=== PATIENT | female | born 1990 | race Caucasian/White ===

== ENCOUNTER 2016-05-20 16:58 | Inpatient (IN) | payer MEDICAID, OTHER ==
[~2016-05-20] VITALS: Ht 165.1 cm; Wt 98.4 kg
[2016-05-20 17:47] LABS: Hematocrit 47.1 % (36.0-46.0); Hemoglobin 16.3 g/dL (12.2-16.2); Mean Corpuscular Hemoglobin 30.5 pg (28.0-32.0); Mean Corpuscular Hgb Conc. 34.6 g/dL (32.0-36.0); Mean Corpuscular Volume 88.1 fL (80.0-100.0); Mean Platelet Volume 9.9 fL (7.4-10.4); Platelet Count (auto) 351 10^3/uL (140-450); Red Cell Distribution Width 12.9 % (11.6-16.0); SUSPECT VIEW TRANSMISSION; White Blood Cell 23.2 10^3/uL (4.4-10.8)
[2016-05-20 17:54] LABS: Metamyelocytes % 0; Myelocytes % 0; Promyelocytes % 0; Reactive Lymphocytes 0
[2016-05-20 18:38] LABS: Albumin 2.9 g/dL (3.4-5.0); BUN/Creatinine Ratio 19.7; Calcium 8.7 mg/dL (8.5-10.1); Potassium 4.6 mmol/L (3.5-5.1)
[2016-05-20 18:48] LABS: Bilirubin, Total 0.6 mg/dL (0.2-1.0); Total Protein 8.2 g/dL (6.4-8.2)
[2016-05-20] MEDS ORDERED: SODIUM CHLORIDE 0.9% 1,000 ML IV ONE (18:48)
[2016-05-20] MEDS ORDERED: CLINDAMYCIN 600MG IV 50 ML IV ONE (19:00)
[2016-05-20] MEDS: SODIUM CHLORIDE 0.9% 1,000 ML IV SCH (19:45)
[2016-05-20] MEDS ORDERED: ONDANSETRON HCL 4 MG/2 ML VIAL IV PRN (19:45)
[2016-05-20] MEDS ORDERED: ACETAMINOPHEN 325 MG TAB PO PRN (19:45)
[2016-05-20] MEDS ORDERED: VANCOMYCIN PER PHARMACY 0 MG IV SCH (19:45)
[2016-05-20] MEDS ORDERED: DOCUSATE SOD 100 MG CAP PO PRN (19:45)
[2016-05-20 20:41] LABS: Platelet Estimate Adequate
[2016-05-20 20:42] LABS: Platelet Clumps FEW
[2016-05-20] MEDS ORDERED: VANCOMYCIN 750 MG in D5W 5% 250 ML IV SCH (21:00)
[2016-05-20 22:19] VITALS: BP 113/58
[2016-05-20] MEDS: VANCOMYCIN 750 MG in D5W 5% 250 ML IV SCH (22:41)
[2016-05-20] MEDS: HYDROmorphone HCL 2 MG/ML VL IV PRN (22:47)
[2016-05-21] MEDS: HYDROmorphone HCL 2 MG/ML VL IV PRN ×4 (02:44→18:21)
[2016-05-21 04:33] VITALS: BP 111/58
[2016-05-21 05:32] VITALS: BP 111/58
[2016-05-21] MEDS: VANCOMYCIN 750 MG in D5W 5% 250 ML IV SCH ×3 (06:02→23:31)
[2016-05-21] MEDS: LORazepam 2MG/ML-1ML VIAL IV PRN ×2 (06:22→21:06)
[2016-05-21 09:14] VITALS: BP 111/68
[2016-05-21 10:42] LABS: Hemoglobin 14.3 g/dL (12.2-16.2); Mean Corpuscular Hemoglobin 30.1 pg (28.0-32.0); Mean Corpuscular Hgb Conc. 33.3 g/dL (32.0-36.0); Mean Corpuscular Volume 90.5 fL (80.0-100.0); Mean Platelet Volume 9.4 fL (7.4-10.4); Platelet Count (auto) 398 10^3/uL (140-450); Red Cell Distribution Width 12.8 % (11.6-16.0); SUSPECT VIEW TRANSMISSION; White Blood Cell 23.7 10^3/uL (4.4-10.8)
[2016-05-21 10:46] LABS: Metamyelocytes % 0; Myelocytes % 0; Promyelocytes % 0; Reactive Lymphocytes 0
[2016-05-21 11:02] LABS: BUN/Creatinine Ratio 10.8; Calcium 8.3 mg/dL (8.5-10.1); Magnesium 2.1 mg/dL (1.6-2.6); Potassium 3.1 mmol/L (3.5-5.1)
[2016-05-21] MEDS: SODIUM CHLORIDE 0.9% 1,000 ML IV SCH (12:25)
[2016-05-21 13:00] VITALS: BP 108/63
[2016-05-21 15:57] LABS: Platelet Estimate Adequate; RBC Morphology Normal
[2016-05-21 16:53] VITALS: BP 104/68
[2016-05-21 17:12] LABS: Phosphorus 2.2 mg/dL (2.5-4.90)
[2016-05-21 20:00] VITALS: BP 105/59
[2016-05-22] VITALS (7 sets, daily range): BP systolic 95–115; BP diastolic 52–74
[2016-05-22] MEDS: HYDROmorphone HCL 2 MG/ML VL IV PRN ×6 (02:38→22:22)
[2016-05-22] MEDS: VANCOMYCIN 750 MG in D5W 5% 250 ML IV SCH ×3 (06:12→22:22)
[2016-05-22] MEDS: SODIUM CHLORIDE 0.9% 1,000 ML IV SCH ×2 (06:13→22:23)
[2016-05-22] MEDS: LORazepam 2MG/ML-1ML VIAL IV PRN (13:00)
[2016-05-22 14:25] LABS: BUN/Creatinine Ratio 9.3; Calcium 8.6 mg/dL (8.5-10.1); Magnesium 2.1 mg/dL (1.6-2.6); Phosphorus 2.9 mg/dL (2.5-4.90); Potassium 4.3 mmol/L (3.5-5.1)
[2016-05-22 15:56] LABS: Basophils # (auto) 0.1 uL; Basophils % (auto) 0.8 % (0.0-2.0); Eosinophils # (auto) 0.1 uL; Eosinophils % (auto) 0.7 % (0.0-7.0); Hematocrit 45.9 % (36.0-46.0); Hemoglobin 15.8 g/dL (12.2-16.2); Lymphocytes # (auto) 1.7 uL; Lymphocytes % (auto) 10.9 % (10.0-50.0); Mean Corpuscular Hemoglobin 30.4 pg (28.0-32.0); Mean Corpuscular Hgb Conc. 34.3 g/dL (32.0-36.0); Mean Corpuscular Volume 88.6 fL (80.0-100.0); Mean Platelet Volume 9.8 fL (7.4-10.4); Monocytes # (auto) 1.1 uL; Monocytes % (auto) 7.1 % (0.0-12.0); Neutrophils # (auto) 12.5 uL; Neutrophils % (auto) 80.5 % (37.0-80.0); Platelet Count (auto) 320 10^3/uL (140-450); Red Cell Distribution Width 12.5 % (11.6-16.0); White Blood Cell 15.6 10^3/uL (4.4-10.8)
[2016-05-22] MEDS: CLINDAMYCIN 600MG IV 50 ML IV SCH ×2 (16:07→23:10)
[2016-05-23] VITALS (7 sets, daily range): BP systolic 100–112; BP diastolic 52–69
[2016-05-23] MEDS: HYDROmorphone HCL 2 MG/ML VL IV PRN ×5 (02:48→21:28)
[2016-05-23] MEDS: VANCOMYCIN 750 MG in D5W 5% 250 ML IV SCH ×3 (05:53→21:31)
[2016-05-23] MEDS: CLINDAMYCIN 600MG IV 50 ML IV SCH ×3 (06:48→23:51)
[2016-05-23] MEDS: LORazepam 2MG/ML-1ML VIAL IV PRN ×3 (07:01→23:48)
[2016-05-23] MEDS: SODIUM CHLORIDE 0.9% 1,000 ML IV SCH (13:53)
[2016-05-23 14:06] LABS: Basophils # (auto) 0 uL; Basophils % (auto) 0.4 % (0.0-2.0); Eosinophils # (auto) 0.1 uL; Eosinophils % (auto) 0.5 % (0.0-7.0); Hematocrit 45.8 % (36.0-46.0); Hemoglobin 15.1 g/dL (12.2-16.2); Lymphocytes # (auto) 1.7 uL; Lymphocytes % (auto) 15.7 % (10.0-50.0); Mean Corpuscular Hemoglobin 29.9 pg (28.0-32.0); Mean Corpuscular Hgb Conc. 32.9 g/dL (32.0-36.0); Mean Platelet Volume 8.8 fL (7.4-10.4); Monocytes # (auto) 0.6 uL; Monocytes % (auto) 5.4 % (0.0-12.0); Neutrophils # (auto) 8.5 uL; Platelet Count (auto) 434 10^3/uL (140-450)
[2016-05-23 14:27] LABS: BUN/Creatinine Ratio 7.4; Calcium 9.3 mg/dL (8.5-10.1); Potassium 4.2 mmol/L (3.5-5.1)
[2016-05-24] MEDS: HYDROmorphone HCL 2 MG/ML VL IV PRN ×3 (03:46→11:47)
[2016-05-24 05:00] VITALS: BP 104/63
[2016-05-24] MEDS: CLINDAMYCIN 600MG IV 50 ML IV SCH (06:47)
[2016-05-24] MEDS: SODIUM CHLORIDE 0.9% 1,000 ML IV SCH (06:50)
[2016-05-24] MEDS: LORazepam 2MG/ML-1ML VIAL IV PRN (07:49)
[2016-05-24 08:00] VITALS: BP 110/67
[2016-05-24 08:59] VITALS: BP 110/67
[2016-05-24 09:35] LABS: Basophils # (auto) 0.2 uL; Basophils % (auto) 1.8 % (0.0-2.0); Eosinophils # (auto) 0.1 uL; Eosinophils % (auto) 1.2 % (0.0-7.0); Hematocrit 41.7 % (36.0-46.0); Hemoglobin 13.9 g/dL (12.2-16.2); Lymphocytes # (auto) 2.3 uL; Lymphocytes % (auto) 23.3 % (10.0-50.0); Mean Corpuscular Hemoglobin 30.2 pg (28.0-32.0); Mean Corpuscular Hgb Conc. 33.3 g/dL (32.0-36.0); Mean Corpuscular Volume 90.7 fL (80.0-100.0); Mean Platelet Volume 9.1 fL (7.4-10.4); Monocytes # (auto) 0.6 uL; Monocytes % (auto) 6.4 % (0.0-12.0); Neutrophils # (auto) 6.6 uL; Neutrophils % (auto) 67.3 % (37.0-80.0); Platelet Count (auto) 361 10^3/uL (140-450); Red Cell Distribution Width 12.6 % (11.6-16.0); White Blood Cell 9.9 10^3/uL (4.4-10.8)
[2016-05-24 10:11] LABS: BUN/Creatinine Ratio 7.4; Calcium 8.8 mg/dL (8.5-10.1); Potassium 3.8 mmol/L (3.5-5.1)
[2016-05-24] MEDS: VANCOMYCIN 750 MG in D5W 5% 250 ML IV SCH ×2 (10:52→14:00)
[2016-05-24 13:00] VITALS: BP 110/67
== END 2016-05-24 13:55 | disposition home or self-care (01) | DRG 383 ==
LOC: ER 17:09 → OVERFLOW 17:10 → WEST WING 21:38
PROVIDERS: ADMIT Nurse Practitioner Acute Care; ATTEND Family Medicine
DX: L03.113 Cellulitis of right upper limb (principal); E87.1 Hypo-osmolality and hyponatremia; L03.114 Cellulitis of left upper limb; E86.0 Dehydration; E88.09 Other disorders of plasma-protein metabolism, not elsewhere classified; F17.210 Nicotine dependence, cigarettes, uncomplicated; R74.0 Nonspecific elevation of levels of transaminase and lactic acid dehydrogenase [LDH]; T40.2X5A Adverse effect of other opioids, initial encounter; F11.23 Opioid dependence with withdrawal; F19.239 Other psychoactive substance dependence with withdrawal, unspecified; Z86.19 Personal history of other infectious and parasitic diseases; Y92.89 Other specified places as the place of occurrence of the external cause
CPT/HCPCS: 36415; 80048; 80053; 80202; 83605; 83735; 84100; 85007; 85025; 85027; 87040; 94761; 96365; J3490; J7060